=== PATIENT | male | born 1985 | race Caucasian/White ===

== ENCOUNTER 2018-03-01 16:53 | Emergency (ER) | payer SELFPAY ==
[~2018-03-01] VITALS: Ht 172.7 cm; Wt 83.5 kg
[~2018-03-01 16:53] MED LIST: ACETAMINOPHEN 325MG TABLET ONE
[2018-03-01] MEDS ORDERED: ACETAMINOPHEN 325MG TABLET PO ONE (18:15)
[2018-03-01] MEDS ORDERED: SODIUM CHLORIDE 0.9% 1,000 ML IV ONE (21:09)
[2018-03-01] MEDS ORDERED: ONDANSETRON HCL 4MG/2ML INJ IV STA (21:09)
[2018-03-01 21:16] LABS: BASOPHILS % 0.3 % (0.0-2.0); HEMATOCRIT. 42.9 % (42.0-52.0); HEMOGLOBIN. 14.9 g/dL (14.0-18.0); LYMPHOCYTES % 7.4 % (20.0-50.0); MEAN CORPUSCULAR HEMOGLOBIN 30.3 pg (28.0-32.0); MEAN PLATELET VOLUME 9.1 fl (7.4-10.4); MONOCYTES % 7.3 % (2.0-8.0); PLATELET 179 x1000/uL (130-400); RED BLOOD CELL COUNT 4.93 mill/uL (4.7-6.1); RED CELL DISTRIBUTION WIDTH 12.8 % (11.6-14.6)
[2018-03-01 21:22] LABS: CHLORIDE 102 mEq/L (98-107)
[2018-03-01 21:23] LABS: INR 1.1; PROTHROMBIN TIME 10.6 sec (9.1-11.1)
[2018-03-01 21:24] LABS: CLARITY URINE CLEAR (CLEAR); COLOR URINE YELLOW (YELLOW); KETONES URINE 3+ (NEGATIVE); LEUKOCYTE ESTERASE URINE NEGATIVE (NEGATIVE); NITRITE URINE NEGATIVE (NEGATIVE); OCCULT BLOOD URINE NEGATIVE (NEGATIVE); PH URINE >=9.0 (4.5-8.0); PROTEIN URINE TRACE (NEGATIVE); SPECIFIC GRAVITY URINE 1.018 (1.005-1.030)
[2018-03-01] MEDS: POTASSIUM CHLORIDE 20MEQ TABLET SR PO ONE ×2 (22:53→23:06)
[2018-03-01] MEDS ORDERED: IBUPROFEN 600MG TABLET PO ONE (23:30)
[2018-03-02] VITALS: BP 126/85
== END 2018-03-02 18:34 | disposition home or self-care (01) ==
LOC: ER 03-02 16:53
DX: R50.9 Fever, unspecified (principal); R11.2 Nausea with vomiting, unspecified; R19.7 Diarrhea, unspecified; M79.10 Myalgia, unspecified site; E87.6 Hypokalemia; F17.200 Nicotine dependence, unspecified, uncomplicated; F12.10 Cannabis abuse, uncomplicated; Z98.890 Other specified postprocedural states
CPT/HCPCS: 36415; 80053; 81003; 83690; 85025; 85610; 87804; 93005; 96361; 96374; 99284; J2405; J7030